=== PATIENT | female | born 2005 | race Caucasian/White ===

== ENCOUNTER → 2024-06-12 | Outpatient (CLI) | payer BC, SELFPAY ==
--- NOTE | 2024-06-12 17:04 | CT_ITS ---
PROCEDURE: ABDOMEN/PELVIS WITHOUT CONT 06/12/2024 REASON FOR EXAM: CALCULUS OF KIDNEY TECHNIQUE: Abdomen and pelvis CT without intravenous contrast. Noncontrast technique limits evaluation of the abdominal and pelvic viscera. Coronal and Sagittal reconstruction series were provided. One or more dose reduction techniques were used (e.g., Automated exposure control, adjustment of the mA and/or kV according to patient size, use of iterative reconstruction technique). PATIENT PREPARATION: Per protocol ORAL CONTRAST TYPE: None. COMPARISON: None available FINDINGS: The lung bases are clear. The liver, gallbladder, adrenal glands, pancreas and spleen appear within limits on noncontrast imaging. Several bilateral small nonobstructing nephrolithiasis. No hydronephrosis or perinephric stranding. Small 3 mm faint high density focus upper pole right kidney may represent area of calcification or possible complex hemorrhagic cyst not excluded. No ureteral or bladder stone identified. The bladder appears within limits. Abdominal aorta appears within limits on noncontrast imaging. No adenopathy identified. No bowel dilation or free air. Moderate proximal colonic stool without evidence of wall thickening. The appendix is not definitely identified, no secondary signs. The ovaries and uterus appear within limits. Very small right pelvic free fluid, nonspecific. Visualized osseous structures appear within limits. A couple of incidental appearing small bone islands left pelvis. CT/Abdomen/Pelvis without Cont IMPRESSION: Several bilateral small nonobstructing nephrolithiasis. No hydronephrosis or pe rinephric stranding. Very small right pelvic free fluid, nonspecific. Reading Location: [id number]
== END | disposition home or self-care (01) ==
PROVIDERS: Referring Provider Urology; Visit Provider Urology
DX: N20.0 Calculus of kidney (principal)
CPT/HCPCS: 74176

== ENCOUNTER → 2024-06-19 | Outpatient (CLI) | payer BC, SELFPAY ==
[2024-06-19 17:32] LABS: PTHIN 31 pg/mL (11-61)
[2024-06-19 18:58] LABS: ALB/GLOB Ratio 1.7 RATIO (0.9-2.4); AST(SGOT) 19 U/L (<=31); Alanine Aminotransfer ALT/SGPT 7 U/L (<=34); Albumin, Serum 4.6 g/dL (3.5-5.0); Alkaline Phosphatase 75 U/L (35-104); Anion Gap 11 (5-15); BUN 7 mg/dL (4-19); BUN/Creat Ratio 9.7 RATIO (10-20); Carbon Dioxide 23.7 mmol/L (21.0-32.0); Chloride 104 mmol/L (98-108); Creatinine, Serum 0.73 mg/dL (0.70-1.20); EST Glomerular Filtration Rate 121 (>60); Globulin 2.7 g/dL (2.2-4.2); Glucose 94 mg/dL (70-99); Magnesium 2.1 mg/dL (1.5-2.2); Phosphorus 3.3 mg/dL (2.7-4.5); Potassium 4.3 mmol/L (3.3-5.1); Protein, Total 7.3 g/dL (5.9-8.4); Sodium Level 138 mmol/L (133-145); Total Bilirubin 0.54 mg/dL (0.00-1.30)
== END | disposition home or self-care (01) ==
LOC: LAB 16:03
PROVIDERS: Referring Provider Nurse Practitioner; Visit Provider Nurse Practitioner
DX: N20.0 Calculus of kidney (principal)
CPT/HCPCS: 36415; 80053; 83735; 83970; 84100

== ENCOUNTER → 2024-06-26 | Outpatient (CLI) | payer BC, SELFPAY ==
[2024-06-27 00:58] LABS: Sodium 24 HR UR 142 mmol/24h (40-220); Urine Chloride 61 mmol/L (Not Establ.); Urine Chloride / 24 Hours 107 mmol/24h (110-250); Urine Potassium 19.7 mmol/L (Not Establ.); Urine Potassium/ 24 Hours 34.5 mmol/24h (25-125); Urine Sodium 81 mmol/L (Not Establ.)
[2024-06-27 01:03] LABS: 24HR UR TOTAL VOLUME 1750 ml; Calcium Urine pH Range 2
[2024-06-27 01:20] LABS: (24 HR) Urine Calcium 183.8 mg/24 HR (42.0-353.0); Urine Calcium (Random) 10.5 mg/dL (Not Estab.)
[2024-06-30 04:07] LABS: Uric Acid, Ur 25.7 mg/dL (Not Estab.)
[2024-07-02 15:08] LABS: Uric Acid, 24Ur 449.8 mg/24 hr (173.7-902.1)
== END | disposition home or self-care (01) ==
LOC: LAB 16:49 → LABSPEC 16:51
PROVIDERS: Referring Provider Nurse Practitioner; Visit Provider Nurse Practitioner
DX: N20.0 Calculus of kidney (principal)
CPT/HCPCS: 81050; 82340; 82436; 84133; 84300; 84560